=== PATIENT | female | born 1965 | race Caucasian/White ===

== ENCOUNTER → 2017-01-19 | Day surgery (SDC) | payer OTHER ==
[~2017-01-19] VITALS: Ht 162.6 cm; Wt 121.6 kg
[~2017-01-19] MED LIST: BASAGLAR SQ; COLACE 100MG C100 MG PO; FIBER LAXATIV0.52 GM PO; GLUCOVANCE 5-51 EACH PO; HYDROCHLOROTHIA25 MG PO; JANUVIA 100 MG100 MG PO; METOPROLOL SUCC25 MG PO; NEURONTIN 400400 MG PO; NORCO 10-325 T1 EACH PO; PRILOSEC OTC20 MG PO; SYNTHROID112 MCG PO; ULTRAM50 MG PO; VITAMIN D350000 UNIT PO; [UNRECOGNIZED DRUG - OTHER] SQ
[2017-01-19 07:39] LABS: HEMOGLOBIN 14.2 gm/dl (12.3-15.3); RED BLOOD COUNT 4.6 M/UL (4.00-5.10); WHITE BLOOD COUNT 8.5 K/UL (4.5-11.0)
[2017-01-19 07:43] LABS: BUN/CREATININE RATIO 22 (0-10)
== END | disposition home or self-care (01) ==
LOC: OR 06:20
PROVIDERS: Orthopaedic Surgery
PROC: 3E0U3BZ Introduction of Anesthetic Agent into Joints, Percutaneous Approach (ICD-10-PCS; 2017-01-19)
PROC: 3E0U33Z Introduction of Anti-inflammatory into Joints, Percutaneous Approach (ICD-10-PCS; principal; 2017-01-19 09:45)
DX: M75.02 Adhesive capsulitis of left shoulder (principal); I10 Essential (primary) hypertension; K21.9 Gastro-esophageal reflux disease without esophagitis; E11.9 Type 2 diabetes mellitus without complications; G89.29 Other chronic pain; M54.9 Dorsalgia, unspecified; F17.210 Nicotine dependence, cigarettes, uncomplicated; Z87.442 Personal history of urinary calculi; Z88.0 Allergy status to penicillin; Z88.1 Allergy status to other antibiotic agents; Z88.2 Allergy status to sulfonamides; Z88.5 Allergy status to narcotic agent; Z88.8 Allergy status to other drugs, medicaments and biological substances; Z79.4 Long term (current) use of insulin; Z79.899 Other long term (current) drug therapy; Z90.49 Acquired absence of other specified parts of digestive tract; Z98.51 Tubal ligation status
CPT/HCPCS: 36415; 73020; 76000; 80048; 82962; 85025; 93005; J1885; J2250; J2274; J2795; J3010; J3301; J7030; J7120

== ENCOUNTER → 2021-10-11 | Outpatient (CLI) | payer OTHER | LOC: SLEEP-COR 21:30 | DX: G47.33 Obstructive sleep apnea (adult) (pediatric) (principal) | CPT/HCPCS: 95810 ==

== ENCOUNTER → 2021-10-19 | Outpatient (CLI) | payer OTHER | LOC: HEART 5 10:25 | DX: R06.02 Shortness of breath (principal) | CPT/HCPCS: 71046; 94060; 94729 ==

== ENCOUNTER → 2021-10-19 | Outpatient (CLI) | payer OTHER | LOC: LAB 11:13 | DX: R09.02 Hypoxemia (principal); R06.02 Shortness of breath | CPT/HCPCS: 36600; 82803 ==